=== PATIENT | male | born 1970 | race Caucasian/White ===

== ENCOUNTER 2020-08-04 12:56 | Emergency (ER) | payer OTHER ==
[~2020-08-04 12:56] MED LIST: ATARAX25 MG PO; CENTRUM SILVER1 EAC2 PO; COZAAR 25MG TAB25 MG PO; FERROUS SULFAT325 MG PO; FOLIC ACID1 M1 PO; K-DUR20 MEQ PO; LASIX20 MG PO; LASIX40 MG PO; MAGNESIUM OXID400 MG PO; MIDODRINE HCL10 MG PO; NEXIUM40 MG PO; SLEEP AID25 M2 PO; SPIRONOLACTONE25 M1 PO; TOPROL XL 25MG25 MG PO; XANAX0.25 MG PO; ZINC50 MG PO
[2020-08-04 14:26] LABS: INR 1.51 (0.9-1.2); PROTHROMBIN TIME 17.3 SECONDS (11.4-13.6); PTT 39.5 SECONDS (22.2-34.7)
[2020-08-04 14:37] LABS: ALBUMIN 1.8 g/dL (3.4-5.0); BILIRUBIN - TOTAL 0.7 mg/dL (0.2-1.0); BUN/CREAT RATIO (CALC) 24.1 RATIO; CREATININE 1.87 mg/dL (0.67-1.17); GLOBULIN (CALCULATION) 2.7 g/dL; TOTAL PROTEIN 4.5 g/dL (6.4-8.2)
[2020-08-04 14:42] LABS: POTASSIUM 5.6 mmol/L (3.5-5.1)
[2020-08-04 14:43] LABS: LACTIC ACID 1.7 mmol/L (0.4-1.9)
[2020-08-04 14:50] LABS: BASOPHIL 0.9 % (0-2); EOSINOPHIL 3.9 % (0-5); HCT 18.4 % (42.0-52.0); MCH 28.4 pg (25.0-31.0); MCHC 29.3 g/dL (32.0-36.0); MCV 96.8 fL (78.0-100.0); MONOCYTE 11.5 % (0-12); MPV 10.5 fL (6.0-9.5); NEUTROPHIL 76.1 % (41-80); NRBC 0; PLT 100 K/uL (150-400); RDW 16.9 % (11.5-14.0); WBC 6.9 K/uL (4.0-10.5)
[2020-08-04 14:52] LABS: HGB 5.4 g/dl (13.2-18.0)
[2020-08-05] MEDS ORDERED: LASIX40 MG PO (02:19)
[2020-08-05] MEDS ORDERED: NEXIUM40 MG PO (02:21)
[2020-08-05] MEDS ORDERED: ATARAX25 MG PO (02:27)
[2020-08-05] MEDS ORDERED: PROAMATINE5 MG PO (02:28)
== END 2020-08-04 15:01 | disposition left against medical advice (07) ==
LOC: FER 12:56
PROVIDERS: Emergency Medicine
DX: D64.9 Anemia, unspecified (principal); R18.8 Other ascites; I10 Essential (primary) hypertension; F17.200 Nicotine dependence, unspecified, uncomplicated; Z87.19 Personal history of other diseases of the digestive system; Z86.79 Personal history of other diseases of the circulatory system; Z91.030 Bee allergy status
CPT/HCPCS: 36415; 71045; 80053; 83605; 83880; 84484; 85025; 85610; 85730; 86850; 86900; 86901; 87040; 93005

== ENCOUNTER 2020-08-04 21:42 | Inpatient (IN) | payer OTHER ==
[2020-08-04 22:58] LABS: BASOPHIL 0.7 % (0-2); EOSINOPHIL 4.8 % (0-5); HCT 18.2 % (42.0-52.0); LYMPHOCYTE 7.4 % (15-48); MCH 28.6 pg (25.0-31.0); MCHC 29.7 g/dL (32.0-36.0); MCV 96.3 fL (78.0-100.0); MONOCYTE 12.2 % (0-12); MPV 10.3 fL (6.0-9.5); NEUTROPHIL 74.5 % (41-80); NRBC 0; RBC 1.89 M/uL (4.70-6.00); RDW 17.1 % (11.5-14.0); WBC 6.7 K/uL (4.0-10.5)
[2020-08-04 23:00] LABS: HGB 5.4 g/dl (13.2-18.0)
[2020-08-04 23:01] LABS: PLT 104 K/uL (150-400)
[2020-08-05] MEDS ORDERED: LASIX40 MG PO (02:19)
[2020-08-05] MEDS ORDERED: NEXIUM40 MG PO (02:21)
[2020-08-05] MEDS ORDERED: ATARAX25 MG PO (02:27)
[2020-08-05] MEDS ORDERED: PROAMATINE5 MG PO (02:28)
--- NOTE | 2020-08-05 03:05 | NUR ---
2315: PT RECEIVED AN ADMIT FROM ED. ORIENTED TO ROOM.
--- NOTE | 2020-08-05 03:18 | NUR ---
0207: TATYANA IN LAB STATED PLASMA WILL NOT BE READY UNTIL DAYSHIFT.
--- NOTE | 2020-08-05 03:59 | NUR ---
0200: KRISTI IBANEZ NOTIFIED OF CHANGE IN PT'S STATUS. PT EXTREMELY LETHARIC. AROUSES TO PAINFUYL STIMULI ONLY.
--- NOTE | 2020-08-05 04:24 | NUR ---
0415: PT TRANFERRED TO ICU BED 2 IN CRITICAL CONDITION.
[2020-08-05 05:46] LABS: BASOPHIL 0.5 % (0-2); EOSINOPHIL 2.1 % (0-5); HCT 20.2 % (42.0-52.0); LYMPHOCYTE 5.8 % (15-48); MCH 28.9 pg (25.0-31.0); MCHC 31.2 g/dL (32.0-36.0); MCV 92.7 fL (78.0-100.0); MONOCYTE 10.8 % (0-12); MPV 9.9 fL (6.0-9.5); NEUTROPHIL 80.4 % (41-80); NRBC 0; PLT 101 K/uL (150-400); RBC 2.18 M/uL (4.70-6.00); RDW 17.2 % (11.5-14.0); WBC 7.7 K/uL (4.0-10.5)
[2020-08-05 05:48] LABS: HGB 6.3 g/dl (13.2-18.0)
[2020-08-05 06:26] LABS: ALBUMIN 2.1 g/dL (3.4-5.0); BILIRUBIN - TOTAL 1.8 mg/dL (0.2-1.0); BUN/CREAT RATIO (CALC) 26.2 RATIO; CREATININE 1.72 mg/dL (0.67-1.17); GLOBULIN (CALCULATION) 2.6 g/dL; TOTAL PROTEIN 4.7 g/dL (6.4-8.2)
[2020-08-05 06:54] LABS: INR 1.52 (0.9-1.2); PROTHROMBIN TIME 17.4 SECONDS (11.4-13.6); PTT 39.9 SECONDS (22.2-34.7)
[2020-08-05 07:08] LABS: POTASSIUM 6.7 mmol/L (3.5-5.1)
[2020-08-05 07:34] LABS: BILIRUBIN NEGATIVE (NEGATIVE); BLOOD NEGATIVE Ery/uL (NEGATIVE); CLARITY CLEAR (CLEAR); COLOR YELLOW (YELLOW); GLUCOSE (U) NORMAL (NORMAL); LEUKOCYTES NEGATIVE Leu/uL (NEGATIVE); NITRITE NEGATIVE (NEGATIVE); PROTEIN NEGATIVE (NEGATIVE); SPECIFIC GRAVITY 1.015 (1.001-1.030); UROBILINOGEN 0.2 mg/dL (0.2-1.0); pH 6.5 (5.0-9.0)
--- NOTE | 2020-08-05 08:26 | NUR ---
PATIENT REMAINS UNRESPONSIVE, PLAN TO INTUBATE BY TO PROTECT AIRWAY. RT AND RN AT BEDSIDE TO ASSIST. ETOMIDATE AND VERSED PUSHED PER MD ORDERS. INTUBATED WITH 7.5 ETT 25 @ LIP AT 0839 BY WITHOUT COMPLICATIONS, EVEN BREATH SOUNDS, COLOR CHANGE PER CO2 DETECTOR. PLACED ON AC R 14 TV 450 PEEP 5 60% FIO2. CONFIRMED PLACEMENT WITH CXR. RESTRAINTS INITIATED. PATIENT BITTING TUBE, FIGHTING VENT. PROPOFOL PUSHED BY APPROX 2ML, GTT OF PROPOFOL STARTED PER MD ORDER.
[2020-08-05 08:40] LABS: WBC (FLUID) 34 WBC/uL
[2020-08-05 09:13] LABS: CLARITY (FLUID) CLEAR; COLOR (FLUID) STRAW; RBC (FLUID) 105 RBC/uL
--- NOTE | 2020-08-05 09:18 | NUR ---
PT LIVES WITH MOM REPORTS HE IS INDEPENDENT;PLEASE ADVISE OF DISCHARGE NEEDS
--- NOTE | 2020-08-05 09:42 | NUR ---
CENTRAL LINE PLACED BY AT APPROX 0900, XRAY CONFIRMED PLACEMENT AT 0942, OKAY TO USE PER .
[2020-08-05 12:43] LABS: HCT 19.5 % (42.0-52.0); MCH 28.8 pg (25.0-31.0); MCHC 31.3 g/dL (32.0-36.0); MPV 10.5 fL (6.0-9.5); RBC 2.12 M/uL (4.70-6.00); RDW 17.8 % (11.5-14.0); WBC 6.4 K/uL (4.0-10.5)
[2020-08-05 12:44] LABS: HGB 6.1 g/dl (13.2-18.0)
[2020-08-05 13:00] LABS: BUN/CREAT RATIO (CALC) 25.5 RATIO; CREATININE 1.65 mg/dL (0.67-1.17); MAGNESIUM 1.9 mg/dL (1.8-2.4); POTASSIUM 5.8 mmol/L (3.5-5.1)
[2020-08-05 17:59] LABS: URINE CREATININE 43.52 mg/dL (29.00-226.00)
[2020-08-06 00:34] LABS: HCT 26.9 % (42.0-52.0); HGB 8.5 g/dL (13.2-18.0)
[2020-08-06 05:53] LABS: BASOPHIL 1.1 % (0-2); EOSINOPHIL 3.9 % (0-5); MCH 28.9 pg (25.0-31.0); MCHC 31.4 g/dL (32.0-36.0); MCV 91.8 fL (78.0-100.0); MONOCYTE 13.9 % (0-12); MPV 10.1 fL (6.0-9.5); NEUTROPHIL 72.6 % (41-80); NRBC 0; PLT 69 K/uL (150-400); RBC 3.05 M/uL (4.70-6.00); RDW 17.8 % (11.5-14.0); WBC 6.3 K/uL (4.0-10.5)
[2020-08-06 06:23] LABS: ALBUMIN 2.1 g/dL (3.4-5.0); BILIRUBIN - TOTAL 1.5 mg/dL (0.2-1.0); BUN/CREAT RATIO (CALC) 22.8 RATIO; CREATININE 1.58 mg/dL (0.67-1.17); GLOBULIN (CALCULATION) 2.5 g/dL; POTASSIUM 5.1 mmol/L (3.5-5.1); TOTAL PROTEIN 4.6 g/dL (6.4-8.2)
[2020-08-06 06:41] LABS: HGB 8.8 g/dl (13.2-18.0)
[2020-08-06] MEDS ORDERED: XIFAXAN550 MG PO (10:04)
[2020-08-06] MEDS ORDERED: TRAZODONE 50MG50 MG PO (10:05)
[2020-08-06] MEDS ORDERED: LACTULOSE10 G/15 ML PR (10:06)
[2020-08-06] MEDS ORDERED: MAG-OXIDE 400M400 MG PO (10:07)
[2020-08-06] MEDS ORDERED: REQUIP0.25 MG PO (10:07)
--- NOTE | 2020-08-06 12:23 | NUR ---
EXTUBATION NOTE: DR. ALONZO ORDERED FOR PT TO BE EXTUBATED SINCE HAS TOLERATED CPAP TRIAL ON VENT VERY WELL X 3 HOURS, AMMONIA LEVEL DOWN TO 70, & SEDATION IS OFF, HE IS STILL SOMEWHAT LETHARGIC/DROWSY BUT FLUTTERS EYES OPEN TO VOICE, MOVES ALL EXTREMITIES, COUGHS ON COMMAND. RESP THERAPY & THIS RN AT BEDSIDE, SUCTIONED WELL BEFORE EXTUBATION & PROVENTIL INHALER GIVEN. EXTUBATED AT 1223, RESTRAINTS REMOVED AT 1224. BP 177/42, HR 123, RR 22, 100% ON NC3 L/MIN 02 IMMEDIATE POST EXTUBATION. FOLLOWING COMMANDS TO COUGH, STATES NAME, YES/NO QUESTIONS, STILL LETHARGIC. DR. ALONZO AWARE. WILL CONT. TO MONITOR CLOSELY.
--- NOTE | 2020-08-06 14:55 | NUR ---
DR. ALONZO NOTIFIED THAT PT REMAINS LETHARGIC, BUT RESTLESS SINCE EXTUBATION. FIDGETY/PULLS AT LINES/TUBES, NEEDS FREQUENT REORIENTATION. STATES YES/NO TO SIMPLE QUESTIONS ASKED, STATES NAME, FOLLOWS COMMAND TO COUGH, BUT OTHERWISE STILL LETHARGIC. ALSO NOTIFIED THAT HR STAYING 1-TEENS TO LOW 120'S. ALL OTHER VSS, 100% O2 ON ROOM AIR. WILL CONTINUE TO MONITOR CLOSELY.
--- NOTE | 2020-08-06 16:56 | NUR ---
DR. ALONZO NOTIFIED THAT HR STAYING HIGH 120'S, ALL OTHER VSS. ASKED MD IF HE WANTS CBC - HE DOES NOT AT THIS TIME. ALSO NOTIFED MD THAT [facility] CALLED TO ASK IF PT NEEDS TO SCHEDULED FOR PARACENTESIS TOMM. PER HOME ROUTINE Q TU/FRI. NORMALLY DRAINS 7-8 L TWICE/WEEK. DR. ALONZO STATES HE MAY DO PARACENTESIS THIS WEEKEND OR IF PT BECOME UNSTABLE, BUT DOES NOT NEED TO BE SCHEDULED FOR TOMORROW AT THIS TIME. INFORMATION RELAYED TO [facility] [place] [place]. WILL CONT. TO [facility].
[2020-08-07 03:56] LABS: BASOPHIL 0.9 % (0-2); EOSINOPHIL 2.8 % (0-5); HGB 7.8 g/dl (13.2-18.0); LYMPHOCYTE 6.8 % (15-48); MCH 28.8 pg (25.0-31.0); MCHC 31.2 g/dL (32.0-36.0); MCV 92.3 fL (78.0-100.0); MONOCYTE 13.9 % (0-12); MPV 9.9 fL (6.0-9.5); NEUTROPHIL 75.4 % (41-80); NRBC 0; RBC 2.71 M/uL (4.70-6.00); RDW 17.7 % (11.5-14.0); WBC 5.6 K/uL (4.0-10.5)
[2020-08-07 04:00] LABS: PLT 52 K/uL (150-400)
[2020-08-07 04:09] LABS: BUN/CREAT RATIO (CALC) 21.7 RATIO; CREATININE 1.15 mg/dL (0.67-1.17); POTASSIUM 3.6 mmol/L (3.5-5.1)
[2020-08-07 09:09] LABS: RETICULOCYTE COUNT 4.5 % (1.0-2.0)
[2020-08-07 09:25] LABS: IRON % SATURATION 19.4 %SAT (20-50)
[2020-08-07 09:52] LABS: FOLIC ACID (SERUM) 18.7 ng/mL (8.6-58.9)
--- NOTE | 2020-08-07 12:36 | NUR ---
PARACENTESIS CATHETER PLACED BY DR. KHAN. 6000 MLS OF CLEAR YELLOW FLUID DRAINED FROM ABDOMEN
[2020-08-08 04:27] LABS: EOSINOPHIL 3.8 % (0-5); HCT 24.3 % (42.0-52.0); HGB 7.6 g/dl (13.2-18.0); LYMPHOCYTE 8.4 % (15-48); MCH 29.6 pg (25.0-31.0); MCHC 31.3 g/dL (32.0-36.0); MCV 94.6 fL (78.0-100.0); MPV 10.2 fL (6.0-9.5); NEUTROPHIL 73.4 % (41-80); NRBC 0; RBC 2.57 M/uL (4.70-6.00); RDW 17.9 % (11.5-14.0)
[2020-08-08 04:28] LABS: PLT 47 K/uL (150-400)
[2020-08-08 04:45] LABS: ALBUMIN 2.5 g/dL (3.4-5.0); BILIRUBIN - TOTAL 1.7 mg/dL (0.2-1.0); BUN/CREAT RATIO (CALC) 16.2 RATIO; CREATININE 1.05 mg/dL (0.67-1.17); GLOBULIN (CALCULATION) 2.2 g/dL; POTASSIUM 3.9 mmol/L (3.5-5.1); TOTAL PROTEIN 4.7 g/dL (6.4-8.2)
--- NOTE | 2020-08-08 11:36 | NUR ---
PATIENT FALL: PATIENT STOOD UP FROM THE CHAIR, THE BOTTOM OF RECLINER HIT THE BACK OF LEGS AND PT FELL RO HIS KNEES THEN FELL OVER AND BUMPED HIS HEAD NOTIFIED DR ALONZO AND DEPUTY CORONER INVESTIGATOR
--- NOTE | 2020-08-08 15:39 | NUR ---
PT RECIEVED A HEAD CT AND A XRAY OF THE LEFT KNEE
--- NOTE | 2020-08-08 23:28 | NUR ---
REMOVED CENTRAL INTERNAL JUGULAR LINE PER ORDER. PATIENT TOLERATED WELL. LINE WAS LEAKING BLOOD, HAD SOME LEAKAGE UPON REMOVAL. COVERED WITH GAUZE AND TAPE. WILL MONITOR FOR LEAKAGE.
[2020-08-09 05:57] LABS: BASOPHIL 0.7 % (0-2); HCT 23.9 % (42.0-52.0); HGB 7.4 g/dl (13.2-18.0); LYMPHOCYTE 10.9 % (15-48); MCH 29.1 pg (25.0-31.0); MCV 94.1 fL (78.0-100.0); MPV 11.1 fL (6.0-9.5); NEUTROPHIL 69.2 % (41-80); NRBC 0; RBC 2.54 M/uL (4.70-6.00); RDW 17.8 % (11.5-14.0); WBC 4.1 K/uL (4.0-10.5)
[2020-08-09 06:21] LABS: BUN/CREAT RATIO (CALC) 17.2 RATIO; CREATININE 0.87 mg/dL (0.67-1.17); POTASSIUM 3.6 mmol/L (3.5-5.1)
[2020-08-09 06:22] LABS: PLT 48 K/uL (150-400)
== END 2020-08-09 12:31 | disposition home or self-care (01) | DRG 442 ==
LOC: FER 21:42 → FMS 22:37 → FICU 08-05 02:23 → FTCU 08-08 09:07
PROVIDERS: Emergency Medicine; Nurse Practitioner; ADMIT Internal Medicine
PROC: 0W9G3ZZ Drainage of Peritoneal Cavity, Percutaneous Approach (ICD-10-PCS; 2020-08-05)
PROC: 0BH17EZ Insertion of Endotracheal Airway into Trachea, Via Natural or Artificial Opening (ICD-10-PCS; 2020-08-05)
PROC: 02HV33Z Insertion of Infusion Device into Superior Vena Cava, Percutaneous Approach (ICD-10-PCS; 2020-08-05)
PROC: 5A1945Z Respiratory Ventilation, 24-96 Consecutive Hours (ICD-10-PCS; 2020-08-05)
PROC: 30233N1 Transfusion of Nonautologous Red Blood Cells into Peripheral Vein, Percutaneous Approach (ICD-10-PCS; 2020-08-05)
PROC: 3E02340 Introduction of Influenza Vaccine into Muscle, Percutaneous Approach (ICD-10-PCS; principal; 2020-08-08)
DX: K72.00 Acute and subacute hepatic failure without coma (principal); D58.9 Hereditary hemolytic anemia, unspecified; E87.1 Hypo-osmolality and hyponatremia; J98.11 Atelectasis; D62 Acute posthemorrhagic anemia; N17.9 Acute kidney failure, unspecified; R18.8 Other ascites; D68.9 Coagulation defect, unspecified; K74.60 Unspecified cirrhosis of liver; M10.9 Gout, unspecified; D69.6 Thrombocytopenia, unspecified; Z20.822 Contact with and (suspected) exposure to COVID-19; F41.1 Generalized anxiety disorder; M19.011 Primary osteoarthritis, right shoulder; F17.210 Nicotine dependence, cigarettes, uncomplicated; D64.9 Anemia, unspecified; Z23 Encounter for immunization
CPT/HCPCS: 36415; 36430; 36600; 70450; 71045; 73560; 80048; 80053; 81003; 82140; 82570; 82607; 82728; 82746; 82803; 83010; 83540; 83550; 83605; 83615; 83735; 83880; 84300; 84484; 85014; 85018; 85025; 85610; 85730; 86850; 86900; 86901; 86922; 87040; 87070; 87088; 87205; 89051; 90686; 93005; 94002; 94640; 97165; 97530; C9113; J0610; J0696; J2250; J2354; J2704; J2916; J7030; P9016; P9017; P9046; U0002

== ENCOUNTER 2020-11-21 13:50 | Emergency (ER) | payer OTHER ==
[~2020-11-21 13:50] MED LIST changes: +LACTULOSE10 G/15 ML PR; +MAG-OXIDE 400M400 MG PO; +PROAMATINE5 MG PO; +REQUIP0.25 MG PO; +TRAZODONE 50MG50 MG PO; +XIFAXAN550 MG PO
[2020-11-21 16:34] LABS: BILIRUBIN NEGATIVE (NEGATIVE); BLOOD NEGATIVE Ery/uL (NEGATIVE); CLARITY CLEAR (CLEAR); COLOR YELLOW (YELLOW); GLUCOSE (U) NORMAL (NORMAL); LEUKOCYTES NEGATIVE Leu/uL (NEGATIVE); NITRITE NEGATIVE (NEGATIVE); PROTEIN NEGATIVE (NEGATIVE); SPECIFIC GRAVITY 1.025 (1.001-1.030); UROBILINOGEN 0.2 mg/dL (0.2-1.0)
[2020-11-21 16:44] LABS: ALBUMIN 2.7 g/dL (3.4-5.0); BUN/CREAT RATIO (CALC) 17.5 RATIO; CREATININE 1.71 mg/dL (0.67-1.17); GLOBULIN (CALCULATION) 2.2 g/dL; POTASSIUM 4.8 mmol/L (3.5-5.1); TOTAL PROTEIN 4.9 g/dL (6.4-8.2)
[2020-11-21 16:45] LABS: BASOPHIL 1.1 % (0-2); EOSINOPHIL 3.5 % (0-5); HCT 25.4 % (42.0-52.0); HGB 8.4 g/dl (13.2-18.0); LYMPHOCYTE 7.3 % (15-48); MCH 31.9 pg (25.0-31.0); MCHC 33.1 g/dL (32.0-36.0); MCV 96.6 fL (78.0-100.0); MONOCYTE 15.2 % (0-12); MPV 12.5 fL (6.0-9.5); NEUTROPHIL 72.4 % (41-80); NRBC 0; RBC 2.63 M/uL (4.70-6.00); RDW 20.9 % (11.5-14.0); WBC 5.5 K/uL (4.0-10.5)
[2020-11-21 16:47] LABS: PLT 91 K/uL (150-400)
== END 2020-11-21 17:26 | disposition home or self-care (01) ==
LOC: FER 13:50
PROVIDERS: Nurse Practitioner Family
DX: S60.221A Contusion of right hand, initial encounter (principal); E80.6 Other disorders of bilirubin metabolism; N18.9 Chronic kidney disease, unspecified; Z87.19 Personal history of other diseases of the digestive system; W19.XXXA Unspecified fall, initial encounter
CPT/HCPCS: 36415; 73130; 80053; 81003; 85025

== ENCOUNTER 2020-12-02 10:55 | Inpatient (IN) | payer OTHER ==
[~2020-12-02] VITALS: Ht 177.8 cm; Wt 70.9 kg
[2020-12-02 11:18] LABS: BASOPHIL 0.3 % (0-2); EOSINOPHIL 1.3 % (0-5); HCT 25.5 % (42.0-52.0); HGB 8.7 g/dl (13.2-18.0); LYMPHOCYTE 4.9 % (15-48); MCH 31.4 pg (25.0-31.0); MCHC 34.1 g/dL (32.0-36.0); MCV 92.1 fL (78.0-100.0); MONOCYTE 12.1 % (0-12); MPV 11.5 fL (6.0-9.5); NEUTROPHIL 80.9 % (41-80); NRBC 0; PLT 128 K/uL (150-400); RBC 2.77 M/uL (4.70-6.00); RDW 18.5 % (11.5-14.0)
[2020-12-02 11:22] LABS: WBC 14.6 K/uL (4.0-10.5)
[2020-12-02 11:27] LABS: ALBUMIN 2.5 g/dL (3.4-5.0); BILIRUBIN - TOTAL 2.2 mg/dL (0.2-1.0); BUN/CREAT RATIO (CALC) 29.8 RATIO; CREATININE 2.18 mg/dL (0.67-1.17); GLOBULIN (CALCULATION) 2.3 g/dL; POTASSIUM 5.4 mmol/L (3.5-5.1); TOTAL PROTEIN 4.8 g/dL (6.4-8.2)
[2020-12-02 11:30] LABS: LACTIC ACID 2.6 mmol/L (0.4-1.9)
[2020-12-02 11:41] LABS: INR 1.61 (0.9-1.2); PROTHROMBIN TIME 18.2 SECONDS (11.4-13.6)
[2020-12-02 12:21] LABS: BILIRUBIN NEGATIVE (NEGATIVE); BLOOD NEGATIVE Ery/uL (NEGATIVE); CLARITY CLEAR (CLEAR); COLOR YELLOW (YELLOW); GLUCOSE (U) NORMAL (NORMAL); LEUKOCYTES NEGATIVE Leu/uL (NEGATIVE); NITRITE NEGATIVE (NEGATIVE); PROTEIN NEGATIVE (NEGATIVE); UROBILINOGEN 0.2 mg/dL (0.2-1.0)
[2020-12-03 05:46] LABS: BASOPHIL 0.2 % (0-2); HCT 20.9 % (42.0-52.0); LYMPHOCYTE 3.6 % (15-48); MCH 31.8 pg (25.0-31.0); MCHC 33.5 g/dL (32.0-36.0); MONOCYTE 8.4 % (0-12); MPV 12.1 fL (6.0-9.5); NEUTROPHIL 86.3 % (41-80); NRBC 0; PLT 64 K/uL (150-400); RDW 18.4 % (11.5-14.0); WBC 12.6 K/uL (4.0-10.5)
[2020-12-03 05:50] LABS: INR 1.87 (0.9-1.2); PROTHROMBIN TIME 20.5 SECONDS (11.4-13.6)
[2020-12-03 06:08] LABS: ALBUMIN 3.2 g/dL (3.4-5.0); BILIRUBIN - TOTAL 2.1 mg/dL (0.2-1.0); BUN/CREAT RATIO (CALC) 29.7 RATIO; CREATININE 1.95 mg/dL (0.67-1.17); GLOBULIN (CALCULATION) 1.9 g/dL; MAGNESIUM 2.3 mg/dL (1.8-2.4); TOTAL PROTEIN 5.1 g/dL (6.4-8.2)
[2020-12-03 06:10] LABS: POTASSIUM 3.7 mmol/L (3.5-5.1)
--- NOTE | 2020-12-03 14:56 | NUR ---
12/03/20 Mr. Mcqueen lives at home with his mother. He will be transferred to [facility] when a bed is available.
[2020-12-03 20:57] LABS: BASOPHIL 0.4 % (0-2); EOSINOPHIL 2.3 % (0-5); HCT 21.3 % (42.0-52.0); HGB 6.8 g/dl (13.2-18.0); LYMPHOCYTE 6.7 % (15-48); MCH 31.6 pg (25.0-31.0); MCHC 31.9 g/dL (32.0-36.0); MCV 99.1 fL (78.0-100.0); MONOCYTE 12.5 % (0-12); MPV 13.5 fL (6.0-9.5); NEUTROPHIL 77.4 % (41-80); NRBC 0; PLT 55 K/uL (150-400); RBC 2.15 M/uL (4.70-6.00); RDW 18.3 % (11.5-14.0)
== END 2020-12-03 23:32 | disposition other institution (70) | DRG 871 ==
LOC: FER 10:55 → FICU 12:56
PROVIDERS: Emergency Medicine; Nurse Practitioner; ADMIT Allergy & Immunology Allergy
PROC: 0W9G3ZZ Drainage of Peritoneal Cavity, Percutaneous Approach (ICD-10-PCS; principal; 2020-12-01)
PROC: 30233L1 Transfusion of Nonautologous Fresh Plasma into Peripheral Vein, Percutaneous Approach (ICD-10-PCS; 2020-12-02)
DX: A41.1 Sepsis due to other specified staphylococcus (principal); G93.41 Metabolic encephalopathy; K65.2 Spontaneous bacterial peritonitis; D68.9 Coagulation defect, unspecified; E87.1 Hypo-osmolality and hyponatremia; I85.10 Secondary esophageal varices without bleeding; D68.8 Other specified coagulation defects; N17.9 Acute kidney failure, unspecified; K70.31 Alcoholic cirrhosis of liver with ascites; K72.90 Hepatic failure, unspecified without coma; D69.6 Thrombocytopenia, unspecified; I95.9 Hypotension, unspecified; I51.7 Cardiomegaly; Z20.822 Contact with and (suspected) exposure to COVID-19; F41.1 Generalized anxiety disorder; M10.9 Gout, unspecified; D64.9 Anemia, unspecified; F17.200 Nicotine dependence, unspecified, uncomplicated; Z91.038 Other insect allergy status; Z79.899 Other long term (current) drug therapy; Z90.79 Acquired absence of other genital organ(s)
CPT/HCPCS: 36415; 36430; 36600; 70450; 71045; 74018; 80053; 81003; 82140; 82550; 82803; 83605; 83735; 85025; 85610; 86900; 86901; 87040; 87077; 87186; 93005; 94640; C9113; G0480; J0696; J2060; J2543; J7030; J7120; P9017; P9046; U0002

== ENCOUNTER 2020-12-26 15:08 | Inpatient (IN) | payer OTHER ==
[~2020-12-26] VITALS: Ht 177.8 cm; Wt 73.1 kg
[2020-12-26 16:55] LABS: BASOPHIL 1.1 % (0-2); HCT 25.4 % (42.0-52.0); HGB 8.6 g/dl (13.2-18.0); LYMPHOCYTE 5.4 % (15-48); MCH 31.7 pg (25.0-31.0); MCHC 33.9 g/dL (32.0-36.0); MCV 93.7 fL (78.0-100.0); MONOCYTE 9.8 % (0-12); MPV 10.3 fL (6.0-9.5); NEUTROPHIL 77.3 % (41-80); NRBC 0; PLT 122 K/uL (150-400); RBC 2.71 M/uL (4.70-6.00); RDW 17.3 % (11.5-14.0); WBC 9.3 K/uL (4.0-10.5)
[2020-12-26 17:08] LABS: INR 1.45 (0.9-1.2); PROTHROMBIN TIME 16.9 SECONDS (11.8-13.4)
[2020-12-26 17:17] LABS: ALBUMIN 2.4 g/dL (3.4-5.0); BILIRUBIN - TOTAL 0.8 mg/dL (0.2-1.0); BUN/CREAT RATIO (CALC) 29.7 RATIO; CREATININE 2.22 mg/dL (0.67-1.17); GLOBULIN (CALCULATION) 2.4 g/dL; TOTAL PROTEIN 4.8 g/dL (6.4-8.2)
[2020-12-26 17:32] LABS: POTASSIUM 7.2 mmol/L (3.5-5.1)
[2020-12-26 18:54] LABS: CREATININE 2.26 mg/dL (0.67-1.17)
[2020-12-26 18:58] LABS: POTASSIUM 7.5 mmol/L (3.5-5.1)
[2020-12-26] MEDS ORDERED: ACIDOPHILUS LA1 EAC1 PO (22:19)
[2020-12-26] MEDS ORDERED: CALCIUM 250+D1 EACH PO (22:19)
[2020-12-26] MEDS ORDERED: VITAMIN B-121000 MC1 PO (22:20)
[2020-12-26] MEDS ORDERED: MIDODRINE HCL10 MG PO (22:20)
[2020-12-26] MEDS ORDERED: CYTOTEC100 MCG PO (22:22)
[2020-12-26] MEDS ORDERED: ZINC50 M1 PO (22:23)
[2020-12-27 00:53] LABS: BUN/CREAT RATIO (CALC) 30.1 RATIO; CREATININE 2.29 mg/dL (0.67-1.17); POTASSIUM 6.4 mmol/L (3.5-5.1)
[2020-12-27 06:33] LABS: EOSINOPHIL 9.3 % (0-5); HGB 7.3 g/dl (13.2-18.0); MCH 30.9 pg (25.0-31.0); MCHC 33.2 g/dL (32.0-36.0); MCV 93.2 fL (78.0-100.0); MONOCYTE 12.6 % (0-12); MPV 10.1 fL (6.0-9.5); NEUTROPHIL 67.8 % (41-80); NRBC 0; PLT 66 K/uL (150-400); RBC 2.36 M/uL (4.70-6.00); RDW 17.2 % (11.5-14.0); WBC 5.8 K/uL (4.0-10.5)
[2020-12-27 06:48] LABS: ALBUMIN 2.4 g/dL (3.4-5.0); BILIRUBIN - TOTAL 1.3 mg/dL (0.2-1.0); BUN/CREAT RATIO (CALC) 28.8 RATIO; CREATININE 2.26 mg/dL (0.67-1.17); GLOBULIN (CALCULATION) 2.2 g/dL; POTASSIUM 6.1 mmol/L (3.5-5.1); TOTAL PROTEIN 4.6 g/dL (6.4-8.2)
[2020-12-27 17:25] LABS: URINE CREATININE 121.97 mg/dL (29.00-226.00)
[2020-12-28 05:51] LABS: BASOPHIL 0.8 % (0-2); HCT 23.7 % (42.0-52.0); HGB 7.8 g/dl (13.2-18.0); LYMPHOCYTE 3.4 % (15-48); MCH 31.5 pg (25.0-31.0); MCHC 32.9 g/dL (32.0-36.0); MCV 95.6 fL (78.0-100.0); MPV 11.4 fL (6.0-9.5); NEUTROPHIL 78.4 % (41-80); NRBC 0; PLT 67 K/uL (150-400); RBC 2.48 M/uL (4.70-6.00); RDW 16.7 % (11.5-14.0); WBC 7.3 K/uL (4.0-10.5)
[2020-12-28 06:12] LABS: ALBUMIN 2.6 g/dL (3.4-5.0); BILIRUBIN - TOTAL 0.7 mg/dL (0.2-1.0); BUN/CREAT RATIO (CALC) 29.4 RATIO; CREATININE 1.97 mg/dL (0.67-1.17); GLOBULIN (CALCULATION) 2.4 g/dL; POTASSIUM 4.8 mmol/L (3.5-5.1)
--- NOTE | 2020-12-28 16:24 | NUR ---
DISCHARGE ORDERS RECEIVED. IV DC'D. PT VERBALIZED UNDERSTANDING OF ALL DISCHARGE ORDERS AND APPOINTMENTS. PT TO PT PICKUP VIA WHEELCHAIR.
== END 2020-12-28 16:20 | disposition home or self-care (01) | DRG 432 ==
LOC: FER 15:08 → FTCU 19:12
PROVIDERS: Emergency Medicine; Internal Medicine; Nurse Practitioner; ADMIT Internal Medicine
PROC: 0W9G3ZX Drainage of Peritoneal Cavity, Percutaneous Approach, Diagnostic (ICD-10-PCS; principal; 2020-12-25)
DX: K70.40 Alcoholic hepatic failure without coma (principal); K76.7 Hepatorenal syndrome; N17.0 Acute kidney failure with tubular necrosis; E87.1 Hypo-osmolality and hyponatremia; N18.4 Chronic kidney disease, stage 4 (severe); I85.10 Secondary esophageal varices without bleeding; D63.8 Anemia in other chronic diseases classified elsewhere; I12.9 Hypertensive chronic kidney disease with stage 1 through stage 4 chronic kidney disease, or unspecified chronic kidney disease; K70.31 Alcoholic cirrhosis of liver with ascites; D53.9 Nutritional anemia, unspecified; D69.6 Thrombocytopenia, unspecified; E87.5 Hyperkalemia; F17.210 Nicotine dependence, cigarettes, uncomplicated; F41.1 Generalized anxiety disorder; M10.9 Gout, unspecified; M19.90 Unspecified osteoarthritis, unspecified site; Z83.3 Family history of diabetes mellitus; Z82.3 Family history of stroke; Z91.19 Patient's noncompliance with other medical treatment and regimen; Z79.899 Other long term (current) drug therapy; Z82.49 Family history of ischemic heart disease and other diseases of the circulatory system; Z91.030 Bee allergy status; Z91.038 Other insect allergy status
CPT/HCPCS: 36415; 80048; 80053; 82140; 82570; 84300; 85025; 85610; 85730; 87088; 94762; J0610; J0696; J1940; J2405; J7042; P9046

== ENCOUNTER 2021-01-09 23:37 | Day surgery (SDCO) | payer OTHER ==
[~2021-01-09] VITALS: Ht 177.8 cm; Wt 77.8 kg
[~2021-01-09 23:37] MED LIST changes: +ACIDOPHILUS LA1 EAC1 PO; +CALCIUM 250+D1 EACH PO; +CYTOTEC100 MCG PO; +VITAMIN B-121000 MC1 PO; +ZINC50 M1 PO
[2021-01-10 00:20] LABS: BASOPHIL 0.9 % (0-2); EOSINOPHIL 6.9 % (0-5); HCT 25.4 % (42.0-52.0); HGB 8.3 g/dl (13.2-18.0); LYMPHOCYTE 5.9 % (15-48); MCH 31.2 pg (25.0-31.0); MCHC 32.7 g/dL (32.0-36.0); MCV 95.5 fL (78.0-100.0); MPV 10.7 fL (6.0-9.5); NRBC 0; RBC 2.66 M/uL (4.70-6.00); RDW 15.2 % (11.5-14.0); WBC 6.5 K/uL (4.0-10.5)
[2021-01-10 00:31] LABS: ALBUMIN 2.4 g/dL (3.4-5.0); BILIRUBIN - TOTAL 0.6 mg/dL (0.2-1.0); BUN/CREAT RATIO (CALC) 24.5 RATIO; CREATININE 2.12 mg/dL (0.67-1.17); GLOBULIN (CALCULATION) 2.6 g/dL
[2021-01-10 00:32] LABS: PLT 59 K/uL (150-400)
[2021-01-10 00:32] LABS: BILIRUBIN NEGATIVE (NEGATIVE); BLOOD TRACE-INTACT Ery/uL (NEGATIVE); CLARITY CLEAR (CLEAR); COLOR YELLOW (YELLOW); GLUCOSE (U) NORMAL (NORMAL); LEUKOCYTES NEGATIVE Leu/uL (NEGATIVE); NITRITE NEGATIVE (NEGATIVE); PROTEIN NEGATIVE (NEGATIVE); SPECIFIC GRAVITY 1.015 (1.001-1.030); UROBILINOGEN 0.2 mg/dL (0.2-1.0)
[2021-01-10 00:38] LABS: LACTIC ACID 1.6 mmol/L (0.4-1.9)
[2021-01-10 00:39] LABS: POTASSIUM 7.3 mmol/L (3.5-5.1)
[2021-01-10 00:53] LABS: SQUAMOUS EPITHELIAL CELLS RARE
[2021-01-10 05:21] LABS: INR 1.35 (0.9-1.2); PTT 35.3 SECONDS (24.4-34.7)
[2021-01-10 05:52] LABS: BUN/CREAT RATIO (CALC) 27.1 RATIO; CREATININE 1.92 mg/dL (0.67-1.17)
[2021-01-10 05:55] LABS: POTASSIUM 5.3 mmol/L (3.5-5.1)
[2021-01-10 07:58] LABS: AMPHETAMINES NEGATIVE (NEGATIVE); BARBITURATES NEGATIVE (NEGATIVE); ECSTASY (MDMA) NEGATIVE (NEGATIVE); MARIJUANA (THC) NEGATIVE (NEGATIVE); METHADONE NEGATIVE (NEGATIVE); OPIATES NEGATIVE (NEGATIVE); OXYCODONE NEGATIVE (NEGATIVE)
--- NOTE | 2021-01-10 08:45 | NUR ---
UPON ADMISSION NOTED CXR WITH QUESTIONABLE PLACEMENT OF NGT, LOKI DAVIDSON INFORMED AND NEW XRAYS DONE WITH RECOMMENDATION TO REMOVE AND REPLACE
--- NOTE | 2021-01-10 11:20 | NUR ---
NGT REPLACED WITH MUCH DIFFICULTY, PATIENT HOLLERING STOP WITH SLURRED SPEECH. CONFIRMED WITH SCAN AND PRACTITIONER. CALL TO MOTHER AND UPDATED AND INFO OBTAINED FOR ASSESSMENT DATABASE
[2021-01-10] MEDS ORDERED: LACTULOSE10 G/15 ML PO (11:27)
[2021-01-10] MEDS ORDERED: MAG-OXIDE 400M400 MG PO (11:28)
[2021-01-10] MEDS ORDERED: PROAMATINE5 MG PO (11:29)
[2021-01-10] MEDS ORDERED: XIFAXAN550 MG PO (11:34)
[2021-01-10] MEDS ORDERED: FOLIC ACID1 MG PO (11:35)
[2021-01-10] MEDS ORDERED: VITAMIN B-1100 MG PO (11:36)
[2021-01-10] MEDS ORDERED: FEOSOL325 MG PO (11:36)
[2021-01-10] MEDS ORDERED: PRILOSEC20 MG PO (11:37)
[2021-01-10 12:17] LABS: MAGNESIUM 1.7 mg/dL (1.8-2.4); POTASSIUM 5.7 mmol/L (3.5-5.1)
[2021-01-10 20:39] LABS: BUN/CREAT RATIO (CALC) 27.5 RATIO; CREATININE 1.82 mg/dL (0.67-1.17); POTASSIUM 5.1 mmol/L (3.5-5.1)
--- NOTE | 2021-01-11 02:32 | NUR ---
PATIENT TOOK ALL ORAL MEDS WITHOUT PROBLEM, TOOK NG TUBE OUT PER PUMP OPERATOR ORDER. PATIENT HAD BOWEL MOVEMENT, ATE 2 BAG LUNCHES...TOLERATED WELL... AND THEN HAD ANOTHER BOWEL MOVEMENT, THEN WENT TO SLEEP.
[2021-01-11 05:54] LABS: HCT 22.2 % (42.0-52.0); HGB 7.2 g/dl (13.2-18.0); MCH 31.2 pg (25.0-31.0); MCHC 32.4 g/dL (32.0-36.0); MCV 96.1 fL (78.0-100.0); MPV 10.6 fL (6.0-9.5); RBC 2.31 M/uL (4.70-6.00); RDW 15.4 % (11.5-14.0); WBC 8.3 K/uL (4.0-10.5)
[2021-01-11 06:26] LABS: ALBUMIN 2.1 g/dL (3.4-5.0); BILIRUBIN - TOTAL 0.8 mg/dL (0.2-1.0); BUN/CREAT RATIO (CALC) 30.2 RATIO; CREATININE 1.69 mg/dL (0.67-1.17); GLOBULIN (CALCULATION) 2.5 g/dL; MAGNESIUM 1.8 mg/dL (1.8-2.4); POTASSIUM 4.9 mmol/L (3.5-5.1); TOTAL PROTEIN 4.6 g/dL (6.4-8.2)
--- NOTE | 2021-01-11 12:39 | NUR ---
DISCHARGE ORDERS RECEIVED. IV'S DC'D. PT VERBALIZED UNDERSTANDING OF ALL DISCHARGE ORDERS. PT ALREADY HAS AN APPOINTMENT WITH DR RONQUILLO AT [facility] ON MONDAY. PT HAS SCHEDULED PARACENTESIS. PT TAKEN TO PT PICKUP VIA WHEELCHAIR.
== END 2021-01-11 12:29 | disposition home or self-care (01) ==
LOC: FER 23:37 → FTCU 01-10 06:10
PROVIDERS: Emergency Medicine Emergency Medical Services; Nurse Practitioner; ADMIT Internal Medicine
DX: K72.01 Acute and subacute hepatic failure with coma (principal); E87.5 Hyperkalemia; D50.8 Other iron deficiency anemias; K70.31 Alcoholic cirrhosis of liver with ascites; K76.6 Portal hypertension; I13.10 Hypertensive heart and chronic kidney disease without heart failure, with stage 1 through stage 4 chronic kidney disease, or unspecified chronic kidney disease; N18.4 Chronic kidney disease, stage 4 (severe); N17.9 Acute kidney failure, unspecified; D69.6 Thrombocytopenia, unspecified; D68.4 Acquired coagulation factor deficiency; I95.89 Other hypotension; E87.1 Hypo-osmolality and hyponatremia; M10.9 Gout, unspecified; M19.90 Unspecified osteoarthritis, unspecified site; F17.200 Nicotine dependence, unspecified, uncomplicated; K80.20 Calculus of gallbladder without cholecystitis without obstruction; D73.2 Chronic congestive splenomegaly; R91.1 Solitary pulmonary nodule; Z91.14 Patient's other noncompliance with medication regimen; Z79.899 Other long term (current) drug therapy; Z91.038 Other insect allergy status; Z20.822 Contact with and (suspected) exposure to COVID-19
CPT/HCPCS: 36415; 36600; 70450; 71045; 74018; 80048; 80053; 80305; 81001; 82140; 82150; 82803; 83605; 83735; 84132; 84145; 84484; 85025; 85610; 85730; 86850; 86900; 86901; 86922; 87040; 87088; 93005; 94762; 96374; 96375; G0378; J0610; J1335; J1940; J3475; J7030; U0002

== ENCOUNTER 2021-01-16 09:16 | Emergency (ER) | payer OTHER ==
[~2021-01-16 09:16] MED LIST changes: +FEOSOL325 MG PO; +FOLIC ACID1 MG PO; +LACTULOSE10 G/15 ML PO; +PRILOSEC20 MG PO; +VITAMIN B-1100 MG PO
[2021-01-16 09:46] LABS: BASOPHIL 0.6 % (0-2); EOSINOPHIL 2.4 % (0-5); LYMPHOCYTE 5.2 % (15-48); MCH 31.3 pg (25.0-31.0); MCHC 33.3 g/dL (32.0-36.0); MCV 93.8 fL (78.0-100.0); MONOCYTE 8.1 % (0-12); NEUTROPHIL 83.1 % (41-80); NRBC 0; RBC 2.56 M/uL (4.70-6.00); RDW 15.9 % (11.5-14.0); WBC 6.9 K/uL (4.0-10.5)
[2021-01-16 09:47] LABS: PLT 79 K/uL (150-400)
[2021-01-16 09:56] LABS: INR 1.44 (0.9-1.2); PROTHROMBIN TIME 16.8 SECONDS (11.8-13.4); PTT 37.4 SECONDS (24.4-34.7)
[2021-01-16 10:06] LABS: LACTIC ACID 1.5 mmol/L (0.4-1.9)
[2021-01-16 10:35] LABS: ACETAMINOPHEN (TYLENOL) <2.0 ug/mL (10.0-30.0); ALBUMIN 2.2 g/dL (3.4-5.0); ALKALINE PHOSHATASE 149 U/L (46-116); AST 63 U/L (15-37); BILIRUBIN - TOTAL 0.9 mg/dL (0.2-1.0); CHLORIDE 97 mmol/L (98-107); CO2 (BICARBONATE) 15 mmol/L (21-32); GLOBULIN (CALCULATION) 2.7 g/dL; GLUCOSE 112 mg/dL (74-106); POTASSIUM 5.4 mmol/L (3.5-5.1); TOTAL PROTEIN 4.9 g/dL (6.4-8.2)
[2021-01-16 10:47] LABS: MAGNESIUM 1.8 mg/dL (1.8-2.4)
[2021-01-16 11:18] LABS: BILIRUBIN NEGATIVE (NEGATIVE); BLOOD NEGATIVE Ery/uL (NEGATIVE); CLARITY CLEAR (CLEAR); COLOR YELLOW (YELLOW); GLUCOSE (U) NORMAL (NORMAL); LEUKOCYTES NEGATIVE Leu/uL (NEGATIVE); NITRITE NEGATIVE (NEGATIVE); PROTEIN NEGATIVE (NEGATIVE); UROBILINOGEN 0.2 mg/dL (0.2-1.0)
[2021-01-16 11:22] LABS: AMPHETAMINES NEGATIVE (NEGATIVE); BARBITURATES NEGATIVE (NEGATIVE); ECSTASY (MDMA) NEGATIVE (NEGATIVE); MARIJUANA (THC) NEGATIVE (NEGATIVE); METHADONE NEGATIVE (NEGATIVE); OPIATES NEGATIVE (NEGATIVE); OXYCODONE NEGATIVE (NEGATIVE)
[2021-01-16 13:19] LABS: BUN 57 mg/dL (7-18)
[2021-01-16 13:35] LABS: CREATININE 2.32 mg/dL (0.67-1.17)
[2021-01-16 13:36] LABS: ALT 70 U/L (16-63)
== END 2021-01-16 18:40 | disposition other institution (70) ==
LOC: FER 09:16
PROVIDERS: Emergency Medicine
DX: K72.90 Hepatic failure, unspecified without coma (principal); E87.1 Hypo-osmolality and hyponatremia; E87.5 Hyperkalemia; R91.1 Solitary pulmonary nodule; D73.2 Chronic congestive splenomegaly; Z20.822 Contact with and (suspected) exposure to COVID-19
CPT/HCPCS: 36415; 36600; 70450; 71250; 74018; 80053; 80305; 81003; 82140; 82803; 83605; 83735; 84484; 85025; 85610; 85730; 87040; 87088; 93005; G0480; J7030; U0002

== ENCOUNTER 2021-01-29 15:39 | Emergency (ER) | payer OTHER | END 2021-01-29 20:37 | disposition home or self-care (01) | LOC: FER 15:39 | DX: K72.90 Hepatic failure, unspecified without coma (principal); N18.9 Chronic kidney disease, unspecified; F17.210 Nicotine dependence, cigarettes, uncomplicated | CPT/HCPCS: 99283 ==

== ENCOUNTER 2021-02-05 11:51 | Emergency (ER) | payer OTHER ==
[2021-02-05 14:26] LABS: ALBUMIN 2.4 g/dL (3.4-5.0); BILIRUBIN - TOTAL 0.8 mg/dL (0.2-1.0); BUN/CREAT RATIO (CALC) 29.5 RATIO; CREATININE 1.83 mg/dL (0.67-1.17); GLOBULIN (CALCULATION) 2.3 g/dL; POTASSIUM 4.5 mmol/L (3.5-5.1); TOTAL PROTEIN 4.7 g/dL (6.4-8.2)
[2021-02-05 22:42] LABS: HCT 24.2 % (42.0-52.0); HGB 8.1 g/dL (13.2-18.0)
== END 2021-02-05 23:09 | disposition home or self-care (01) ==
LOC: FER 11:51
PROVIDERS: Emergency Medicine
DX: D64.9 Anemia, unspecified (principal); K74.60 Unspecified cirrhosis of liver; F17.210 Nicotine dependence, cigarettes, uncomplicated
CPT/HCPCS: 36415; 36430; 80053; 85014; 85018; 85610; 85730; 86850; 86900; 86901; 86922; P9016

== ENCOUNTER 2021-04-17 10:07 | Emergency (ER) | payer OTHER ==
[2021-04-17 10:35] LABS: BASOPHIL 1.1 % (0-2); EOSINOPHIL 6.1 % (0-5); HCT 28.4 % (42.0-52.0); HGB 9.3 g/dl (13.2-18.0); LYMPHOCYTE 6.3 % (15-48); MCH 33.1 pg (25.0-31.0); MCHC 32.7 g/dL (32.0-36.0); MCV 101.1 fL (78.0-100.0); MONOCYTE 9.9 % (0-12); MPV 11.4 fL (6.0-9.5); NEUTROPHIL 76.2 % (41-80); NRBC 0; RBC 2.81 M/uL (4.70-6.00); RDW 17.6 % (11.5-14.0); WBC 4.5 K/uL (4.0-10.5)
[2021-04-17 10:47] LABS: INR 1.68 (0.9-1.2)
[2021-04-17 10:52] LABS: PLT 55 K/uL (150-400)
[2021-04-17 10:54] LABS: LACTIC ACID 0.7 mmol/L (0.4-1.9)
[2021-04-17 11:01] LABS: ALBUMIN 2.3 g/dL (3.4-5.0); ALKALINE PHOSHATASE 218 U/L (46-116); ALT 40 U/L (16-63); AST 49 U/L (15-37); BILIRUBIN - TOTAL 1.7 mg/dL (0.2-1.0); BUN 18 mg/dL (7-18); BUN/CREAT RATIO (CALC) 14.3 RATIO; CHLORIDE 108 mmol/L (98-107); CO2 (BICARBONATE) 22 mmol/L (21-32); CREATININE 1.26 mg/dL (0.67-1.17); GLUCOSE 107 mg/dL (74-106); LIPASE 131 U/L (73-393); POTASSIUM 4.2 mmol/L (3.5-5.1); TOTAL PROTEIN 5.3 g/dL (6.4-8.2)
== END 2021-04-17 13:40 | disposition other institution (70) ==
LOC: FER 10:07
PROVIDERS: Emergency Medicine
DX: K72.90 Hepatic failure, unspecified without coma (principal); R93.0 Abnormal findings on diagnostic imaging of skull and head, not elsewhere classified; N18.9 Chronic kidney disease, unspecified
CPT/HCPCS: 36415; 70450; 71045; 80053; 82140; 83605; 83690; 85025; 85610; G0480

== ENCOUNTER 2021-05-07 20:35 | Emergency (ER) | payer OTHER | END 2021-05-09 05:54 | disposition other institution (70) | LOC: FER 20:35 | DX: K92.0 Hematemesis (principal); K70.31 Alcoholic cirrhosis of liver with ascites; K72.90 Hepatic failure, unspecified without coma; N18.9 Chronic kidney disease, unspecified; F17.210 Nicotine dependence, cigarettes, uncomplicated; Z20.822 Contact with and (suspected) exposure to COVID-19 ==

== ENCOUNTER 2021-06-17 18:33 | Inpatient (IN) | payer OTHER ==
[~2021-06-17] VITALS: Ht 178 cm; Wt 77.0 kg
[2021-06-17 19:09] LABS: BUN/CREAT RATIO (CALC) 15.1 RATIO; CREATININE 1.06 mg/dL (0.67-1.17); GLOBULIN (CALCULATION) 1.9 g/dL; POTASSIUM 4.2 mmol/L (3.5-5.1); TOTAL PROTEIN 4.9 g/dL (6.4-8.2)
[2021-06-17 19:33] LABS: BASOPHIL 1.2 % (0-2); EOSINOPHIL 2.5 % (0-5); HCT 29.1 % (42.0-52.0); HGB 9.3 g/dl (13.2-18.0); LYMPHOCYTE 6.1 % (15-48); MCH 30.9 pg (25.0-31.0); MCV 96.7 fL (78.0-100.0); MONOCYTE 8.8 % (0-12); NRBC 0; PLT 71 K/uL (150-400); RBC 3.01 M/uL (4.70-6.00); RDW 18.8 % (11.5-14.0); WBC 5.1 K/uL (4.0-10.5)
[2021-06-17 21:39] LABS: CORONAVIRUS 2019 SARS-COV-2 NEGATIVE (NEGATIVE); INFLUENZA A NAA NEGATIVE (NEGATIVE)
[2021-06-17 22:02] LABS: BILIRUBIN NEGATIVE (NEGATIVE); BLOOD NEGATIVE Ery/uL (NEGATIVE); CLARITY CLEAR (CLEAR); COLOR YELLOW (YELLOW); GLUCOSE (U) NORMAL (NORMAL); LEUKOCYTES NEGATIVE Leu/uL (NEGATIVE); NITRITE NEGATIVE (NEGATIVE); PROTEIN NEGATIVE (NEGATIVE); UROBILINOGEN 0.2 mg/dL (0.2-1.0)
[2021-06-17 22:07] LABS: ECSTASY (MDMA) NEGATIVE (NEGATIVE); MARIJUANA (THC) NEGATIVE (NEGATIVE); METHADONE NEGATIVE (NEGATIVE); OPIATES NEGATIVE (NEGATIVE)
[2021-06-17 22:08] LABS: AMPHETAMINES NEGATIVE (NEGATIVE); BARBITURATES NEGATIVE (NEGATIVE); OXYCODONE NEGATIVE (NEGATIVE)
[2021-06-18 00:32] LABS: BILIRUBIN - DIRECT 0.8 mg/dL (0.00-0.20); BILIRUBIN - TOTAL 3.8 mg/dL (0.2-1.0); GLOBULIN (CALCULATION) 2.2 g/dL; TOTAL PROTEIN 5.2 g/dL (6.4-8.2)
[2021-06-18] MEDS ORDERED: ROCALTROL 0.0.25 MCG PO (03:22)
[2021-06-18] MEDS ORDERED: LASIX40 MG PO (03:23)
[2021-06-18] MEDS ORDERED: ALDACTONE25 MG PO (03:24)
[2021-06-18] MEDS ORDERED: PROTONIX 40MG T40 MG PO (03:24)
[2021-06-18] MEDS ORDERED: SODIUM BICARBO650 M1 PO ×2 (03:24→03:25)
[2021-06-18 05:33] LABS: EOSINOPHIL 4.1 % (0-5); HCT 27.7 % (42.0-52.0); LYMPHOCYTE 5.8 % (15-48); MCH 31.4 pg (25.0-31.0); MCHC 32.5 g/dL (32.0-36.0); MCV 96.5 fL (78.0-100.0); MONOCYTE 9.9 % (0-12); MPV 10.8 fL (6.0-9.5); NRBC 0; RBC 2.87 M/uL (4.70-6.00); RDW 18.7 % (11.5-14.0); WBC 5.1 K/uL (4.0-10.5)
[2021-06-18 05:51] LABS: CREATININE 1.2 mg/dL (0.67-1.17); POTASSIUM 3.8 mmol/L (3.5-5.1)
[2021-06-18 05:52] LABS: INR 1.86 (0.9-1.2); PROTHROMBIN TIME 20.6 SECONDS (11.8-13.4)
[2021-06-18 06:01] LABS: PLT 69 K/uL (150-400)
--- NOTE | 2021-06-18 15:39 | NUR ---
PARACENTENSIS DONE AT BEDSIDE IN ICU [address]AN. FLUID TOTAL 7L. PATIENT TOLERATED PROCEDURE WELL. ALBUMIN GIVEN POST PARACENTESIS ORDERED.
[2021-06-19 06:00] LABS: BASOPHIL 1.2 % (0-2); EOSINOPHIL 3.7 % (0-5); HCT 24.7 % (42.0-52.0); HGB 8.1 g/dl (13.2-18.0); LYMPHOCYTE 4.8 % (15-48); MCH 31.2 pg (25.0-31.0); MCHC 32.8 g/dL (32.0-36.0); MONOCYTE 9.9 % (0-12); MPV 11.5 fL (6.0-9.5); NEUTROPHIL 79.7 % (41-80); NRBC 0; RDW 18.4 % (11.5-14.0); WBC 4.3 K/uL (4.0-10.5)
[2021-06-19 06:25] LABS: ALBUMIN 2.9 g/dL (3.4-5.0); BILIRUBIN - TOTAL 2.1 mg/dL (0.2-1.0); BUN/CREAT RATIO (CALC) 16.7 RATIO; CREATININE 1.08 mg/dL (0.67-1.17); TOTAL PROTEIN 4.9 g/dL (6.4-8.2)
[2021-06-19 06:30] LABS: PLT 51 K/uL (150-400)
--- NOTE | 2021-06-19 15:27 | NUR ---
PT DISCHARGED VIA WHEELCHAIR WITH MOTHER. BACK PACK, CLOTHING GIVEN TO PT. ROOM CHECKED BEFORE PT LEFT FOR BELONGINGS.
== END 2021-06-19 13:59 | disposition home or self-care (01) | DRG 433 ==
LOC: FER 18:33 → FTCU 21:52 → FICU 21:52 → FER 22:50 → FICU 06-18 10:35 → FTCU 06-18 18:11
PROVIDERS: Allergy & Immunology Allergy; Emergency Medicine; Internal Medicine; Nurse Practitioner; ADMIT Internal Medicine
PROC: 0W9G3ZZ Drainage of Peritoneal Cavity, Percutaneous Approach (ICD-10-PCS; principal; 2021-06-18)
DX: K70.40 Alcoholic hepatic failure without coma (principal); E87.1 Hypo-osmolality and hyponatremia; K70.31 Alcoholic cirrhosis of liver with ascites; I95.89 Other hypotension; F41.1 Generalized anxiety disorder; M10.9 Gout, unspecified; M19.90 Unspecified osteoarthritis, unspecified site; D64.9 Anemia, unspecified; D69.6 Thrombocytopenia, unspecified; F17.200 Nicotine dependence, unspecified, uncomplicated; Z79.899 Other long term (current) drug therapy; Z91.038 Other insect allergy status; Z98.52 Vasectomy status
CPT/HCPCS: 36415; 36600; 70450; 71045; 80048; 80053; 80076; 80305; 81003; 82140; 82803; 84145; 85025; 85610; 96374; 97162; 97166; 97530-GP; 97535; J0692; J0696; J7030; P9046; P9047; U0002

== ENCOUNTER 2021-07-18 15:46 | Inpatient (IN) | payer OTHER ==
[~2021-07-18] VITALS: Ht 172.7 cm; Wt 73.7 kg
[~2021-07-18 15:46] MED LIST changes: +ALDACTONE25 MG PO; +PROTONIX 40MG T40 MG PO; +ROCALTROL 0.0.25 MCG PO; +SODIUM BICARBO650 M1 PO
[2021-07-18 16:22] LABS: BASOPHIL 1.1 % (0-2); EOSINOPHIL 2.5 % (0-5); HCT 26.1 % (42.0-52.0); HGB 8.7 g/dl (13.2-18.0); MCH 32.2 pg (25.0-31.0); MCHC 33.3 g/dL (32.0-36.0); MCV 96.7 fL (78.0-100.0); MONOCYTE 12.1 % (0-12); NRBC 0; RDW 18.2 % (11.5-14.0); WBC 3.6 K/uL (4.0-10.5)
[2021-07-18 16:23] LABS: PLT 63 K/uL (150-400)
[2021-07-18 16:32] LABS: ACETAMINOPHEN (TYLENOL) <2.0 ug/mL (10.0-30.0); ALBUMIN 2.9 g/dL (3.4-5.0); ALKALINE PHOSHATASE 293 U/L (46-116); ALT 30 U/L (16-63); AST 40 U/L (15-37); BUN 15 mg/dL (7-18); BUN/CREAT RATIO (CALC) 13.3 RATIO; CHLORIDE 111 mmol/L (98-107); CO2 (BICARBONATE) 17 mmol/L (21-32); CREATININE 1.13 mg/dL (0.67-1.17); GLOBULIN (CALCULATION) 2.7 g/dL; GLUCOSE 102 mg/dL (74-106); POTASSIUM 3.6 mmol/L (3.5-5.1); TOTAL PROTEIN 5.6 g/dL (6.4-8.2)
[2021-07-18 16:53] LABS: BILIRUBIN NEGATIVE (NEGATIVE); BLOOD NEGATIVE Ery/uL (NEGATIVE); CLARITY CLEAR (CLEAR); COLOR YELLOW (YELLOW); GLUCOSE (U) NORMAL (NORMAL); LEUKOCYTES NEGATIVE Leu/uL (NEGATIVE); NITRITE NEGATIVE (NEGATIVE); PROTEIN NEGATIVE (NEGATIVE); SPECIFIC GRAVITY 1.015 (1.001-1.030); UROBILINOGEN 0.2 mg/dL (0.2-1.0)
[2021-07-18 16:54] LABS: ECSTASY (MDMA) NEGATIVE (NEGATIVE); MARIJUANA (THC) NEGATIVE (NEGATIVE); METHADONE NEGATIVE (NEGATIVE); OPIATES NEGATIVE (NEGATIVE)
[2021-07-18 16:55] LABS: AMPHETAMINES NEGATIVE (NEGATIVE); BARBITURATES NEGATIVE (NEGATIVE); OXYCODONE NEGATIVE (NEGATIVE)
[2021-07-18 16:55] LABS: INFLUENZA A NAA NEGATIVE (NEGATIVE)
[2021-07-18 16:56] LABS: CORONAVIRUS 2019 SARS-COV-2 POSITIVE (NEGATIVE)
[2021-07-19 06:48] LABS: BASOPHIL 1.2 % (0-2); EOSINOPHIL 4.7 % (0-5); HCT 23.9 % (42.0-52.0); HGB 7.9 g/dl (13.2-18.0); LYMPHOCYTE 7.6 % (15-48); MCH 31.5 pg (25.0-31.0); MCHC 33.1 g/dL (32.0-36.0); MCV 95.2 fL (78.0-100.0); MPV 9.8 fL (6.0-9.5); NEUTROPHIL 72.2 % (41-80); NRBC 0; RBC 2.51 M/uL (4.70-6.00); WBC 3.4 K/uL (4.0-10.5)
[2021-07-19 06:49] LABS: PLT 50 K/uL (150-400)
[2021-07-19 06:58] LABS: INR 1.71 (0.9-1.2); PROTHROMBIN TIME 19.3 SECONDS (11.8-13.4)
[2021-07-19 07:11] LABS: ALBUMIN 2.8 g/dL (3.4-5.0); BILIRUBIN - TOTAL 2.3 mg/dL (0.2-1.0); BUN/CREAT RATIO (CALC) 15.3 RATIO; CREATININE 1.11 mg/dL (0.67-1.17); POTASSIUM 3.4 mmol/L (3.5-5.1); TOTAL PROTEIN 4.8 g/dL (6.4-8.2)
[2021-07-20 14:03] LABS: BASOPHIL 1.2 % (0-2); EOSINOPHIL 4.5 % (0-5); HCT 23.2 % (42.0-52.0); HGB 7.5 g/dl (13.2-18.0); LYMPHOCYTE 5.4 % (15-48); MCHC 32.3 g/dL (32.0-36.0); MCV 95.9 fL (78.0-100.0); MONOCYTE 12.7 % (0-12); MPV 10.5 fL (6.0-9.5); NEUTROPHIL 75.7 % (41-80); NRBC 0; RBC 2.42 M/uL (4.70-6.00); RDW 18.1 % (11.5-14.0); WBC 4.2 K/uL (4.0-10.5)
[2021-07-20 14:18] LABS: ALBUMIN 2.4 g/dL (3.4-5.0); BILIRUBIN - TOTAL 1.7 mg/dL (0.2-1.0); BUN/CREAT RATIO (CALC) 15.4 RATIO; CREATININE 1.17 mg/dL (0.67-1.17); POTASSIUM 3.8 mmol/L (3.5-5.1); TOTAL PROTEIN 4.4 g/dL (6.4-8.2)
[2021-07-20 14:22] LABS: PLT 66 K/uL (150-400)
== END 2021-07-21 15:57 | disposition home health service (06) | DRG 432 ==
LOC: FER 15:46 → FMS 16:49
PROVIDERS: Internal Medicine; Nurse Practitioner; ADMIT Allergy & Immunology Allergy
PROC: 8E0ZXY6 Isolation (ICD-10-PCS; principal; 2021-07-18)
PROC: 0T9B70Z Drainage of Bladder with Drainage Device, Via Natural or Artificial Opening (ICD-10-PCS; 2021-07-18)
DX: K70.31 Alcoholic cirrhosis of liver with ascites (principal); U07.1 COVID-19; J12.82 Pneumonia due to coronavirus disease 2019; K72.00 Acute and subacute hepatic failure without coma; K76.6 Portal hypertension; D61.818 Other pancytopenia; F10.10 Alcohol abuse, uncomplicated; I50.9 Heart failure, unspecified; F41.1 Generalized anxiety disorder; M10.9 Gout, unspecified; K80.20 Calculus of gallbladder without cholecystitis without obstruction; I48.91 Unspecified atrial fibrillation; M19.90 Unspecified osteoarthritis, unspecified site; Z91.14 Patient's other noncompliance with medication regimen; Z91.030 Bee allergy status; Z79.899 Other long term (current) drug therapy
CPT/HCPCS: 36415; 70450; 71250; 80053; 80305; 81003; 82140; 84145; 84484; 85025; 85610; 93005; 97110; 97162; 97166; 97530-GP; 97535; G0480; U0002

== ENCOUNTER 2021-07-22 10:27 | Inpatient (IN) | payer OTHER ==
[~2021-07-22] VITALS: Ht 175.3 cm; Wt 77.6 kg
[2021-07-22 11:43] LABS: BASOPHIL 0.7 % (0-2); EOSINOPHIL 2.9 % (0-5); HGB 9.3 g/dl (13.2-18.0); LYMPHOCYTE 6.9 % (15-48); MCHC 33.2 g/dL (32.0-36.0); MCV 96.2 fL (78.0-100.0); MONOCYTE 10.9 % (0-12); MPV 11.7 fL (6.0-9.5); NEUTROPHIL 78.1 % (41-80); NRBC 0; RBC 2.91 M/uL (4.70-6.00); RDW 18.3 % (11.5-14.0); WBC 4.2 K/uL (4.0-10.5)
[2021-07-22 12:10] LABS: ALBUMIN 2.9 g/dL (3.4-5.0); ALKALINE PHOSHATASE 291 U/L (46-116); ALT 37 U/L (16-63); AST 44 U/L (15-37); BILIRUBIN - TOTAL 1.7 mg/dL (0.2-1.0); BUN 18 mg/dL (7-18); BUN/CREAT RATIO (CALC) 15.5 RATIO; CHLORIDE 108 mmol/L (98-107); CO2 (BICARBONATE) 19 mmol/L (21-32); CREATININE 1.16 mg/dL (0.67-1.17); GLOBULIN (CALCULATION) 2.2 g/dL; GLUCOSE 103 mg/dL (74-106); POTASSIUM 4.2 mmol/L (3.5-5.1); TOTAL PROTEIN 5.1 g/dL (6.4-8.2)
[2021-07-22 12:30] LABS: CORONAVIRUS 2019 SARS-COV-2 NEGATIVE (NEGATIVE); INFLUENZA A NAA NEGATIVE (NEGATIVE)
[2021-07-22 12:47] LABS: INR 1.67 (0.9-1.2); PROTHROMBIN TIME 18.9 SECONDS (11.8-13.4); PTT 40.6 SECONDS (24.4-34.7)
[2021-07-22 14:50] LABS: PLT 60 K/uL (150-400)
[2021-07-22 14:56] LABS: BILIRUBIN NEGATIVE (NEGATIVE); BLOOD 1+ Ery/uL (NEGATIVE); CLARITY CLEAR (CLEAR); COLOR YELLOW (YELLOW); GLUCOSE (U) NORMAL (NORMAL); LEUKOCYTES NEGATIVE Leu/uL (NEGATIVE); NITRITE NEGATIVE (NEGATIVE); PROTEIN NEGATIVE (NEGATIVE); UROBILINOGEN 0.2 mg/dL (0.2-1.0)
[2021-07-22 14:59] LABS: AMPHETAMINES NEGATIVE (NEGATIVE); BARBITURATES NEGATIVE (NEGATIVE); ECSTASY (MDMA) NEGATIVE (NEGATIVE); MARIJUANA (THC) NEGATIVE (NEGATIVE); METHADONE NEGATIVE (NEGATIVE); OPIATES NEGATIVE (NEGATIVE); OXYCODONE NEGATIVE (NEGATIVE)
[2021-07-22 15:17] LABS: URINARY WBC RARE
[2021-07-23 05:18] LABS: BASOPHIL 1.2 % (0-2); EOSINOPHIL 4.6 % (0-5); LYMPHOCYTE 8.6 % (15-48); MCH 31.4 pg (25.0-31.0); MONOCYTE 14.2 % (0-12); MPV 11.7 fL (6.0-9.5); NEUTROPHIL 71.1 % (41-80); NRBC 0; RBC 2.55 M/uL (4.70-6.00); RDW 18.8 % (11.5-14.0); WBC 3.2 K/uL (4.0-10.5)
[2021-07-23 05:19] LABS: PLT 56 K/uL (150-400)
[2021-07-23 05:33] LABS: BUN/CREAT RATIO (CALC) 14.1 RATIO; CREATININE 0.92 mg/dL (0.67-1.17); MAGNESIUM 1.3 mg/dL (1.8-2.4); POTASSIUM 4.4 mmol/L (3.5-5.1)
--- NOTE | 2021-07-23 14:54 | NUR ---
07/23 Mr. Mcqueen lives at home with his mother. He has a 3in1 and rw. [facility] is current and have been notified of admission via [facility]. Please notify [facility] at [phone] if patient discharges over the weekend.
[2021-07-24 06:19] LABS: BASOPHIL 0.9 % (0-2); HCT 22.9 % (42.0-52.0); HGB 7.4 g/dl (13.2-18.0); LYMPHOCYTE 7.7 % (15-48); MCH 31.6 pg (25.0-31.0); MCHC 32.3 g/dL (32.0-36.0); MCV 97.9 fL (78.0-100.0); MONOCYTE 16.7 % (0-12); MPV 11.5 fL (6.0-9.5); NEUTROPHIL 70.1 % (41-80); NRBC 0; RBC 2.34 M/uL (4.70-6.00); RDW 18.6 % (11.5-14.0); WBC 3.2 K/uL (4.0-10.5)
[2021-07-24 06:36] LABS: BUN/CREAT RATIO (CALC) 12.9 RATIO; CREATININE 0.93 mg/dL (0.67-1.17); MAGNESIUM 1.4 mg/dL (1.8-2.4); POTASSIUM 3.7 mmol/L (3.5-5.1)
[2021-07-24 06:39] LABS: PLT 58 K/uL (150-400)
== END 2021-07-25 11:50 | disposition home health service (06) | DRG 434 ==
LOC: FER 10:27 → FOFB 14:37 → FMS 14:37
PROVIDERS: Emergency Medicine; ADMIT Internal Medicine
PROC: 0DH673Z Insertion of Infusion Device into Stomach, Via Natural or Artificial Opening (ICD-10-PCS; principal; 2021-07-22)
DX: K70.40 Alcoholic hepatic failure without coma (principal); K70.31 Alcoholic cirrhosis of liver with ascites; Z20.822 Contact with and (suspected) exposure to COVID-19; I10 Essential (primary) hypertension; F41.1 Generalized anxiety disorder; M10.9 Gout, unspecified; D64.9 Anemia, unspecified; M19.90 Unspecified osteoarthritis, unspecified site; Z91.030 Bee allergy status
CPT/HCPCS: 36415; 36600; 70450; 71045; 74018; 80048; 80053; 80305; 81001; 82140; 82803; 83735; 84145; 85025; 85610; 85730; 87040; 93005; C9113; G0480; J3475; U0002

== ENCOUNTER 2021-09-21 11:13 | Emergency (ER) | payer OTHER ==
[2021-09-21 15:44] LABS: BASOPHIL 1.5 % (0-2); EOSINOPHIL 2.9 % (0-5); HCT 24.1 % (42.0-52.0); HGB 7.6 g/dl (13.2-18.0); LYMPHOCYTE 8.5 % (15-48); MCH 32.3 pg (25.0-31.0); MCHC 31.5 g/dL (32.0-36.0); MCV 102.6 fL (78.0-100.0); MPV 10.4 fL (6.0-9.5); NEUTROPHIL 66.1 % (41-80); NRBC 0; PLT 65 K/uL (150-400); RBC 2.35 M/uL (4.70-6.00); RDW 19.6 % (11.5-14.0); WBC 2.7 K/uL (4.0-10.5)
[2021-09-21 15:46] LABS: MONOCYTE 20.6 % (0-12)
== END 2021-09-21 16:03 | disposition home or self-care (01) ==
LOC: FER 11:13
PROVIDERS: Physician Assistant Medical
DX: D64.9 Anemia, unspecified (principal); F17.210 Nicotine dependence, cigarettes, uncomplicated
CPT/HCPCS: 36415; 85025; 99284

== ENCOUNTER 2021-09-27 20:03 | Emergency (ER) | payer OTHER ==
[2021-09-27 20:23] LABS: BASOPHIL 0 % (0-2); HCT 18.4 % (42.0-52.0); LYMPHOCYTE 3.2 % (15-48); MCH 32.4 pg (25.0-31.0); MCV 104.5 fL (78.0-100.0); MONOCYTE 4.9 % (0-12); MPV 11.3 fL (6.0-9.5); NRBC 0; RBC 1.76 M/uL (4.70-6.00); RDW 20.5 % (11.5-14.0); WBC 2.5 K/uL (4.0-10.5)
[2021-09-27 20:26] LABS: HGB 5.7 g/dl (13.2-18.0)
[2021-09-27 20:27] LABS: NEUTROPHIL 89.5 % (41-80); PLT 44 K/uL (150-400)
[2021-09-27 20:43] LABS: ALBUMIN 3.5 g/dL (3.4-5.0); BILIRUBIN - TOTAL 2.3 mg/dL (0.2-1.0); BUN/CREAT RATIO (CALC) 14.8 RATIO; CREATININE 1.62 mg/dL (0.67-1.17); GLOBULIN (CALCULATION) 1.7 g/dL; POTASSIUM 3.5 mmol/L (3.5-5.1); TOTAL PROTEIN 5.2 g/dL (6.4-8.2)
[2021-09-28 02:16] LABS: HCT 20.4 % (42.0-52.0); HGB 6.7 g/dL (13.2-18.0)
[2021-09-28 02:39] LABS: HCT 21.3 % (42.0-52.0)
== END 2021-09-28 03:30 | disposition left against medical advice (07) ==
LOC: FER 20:03
PROVIDERS: Emergency Medicine
DX: D64.9 Anemia, unspecified (principal); I11.0 Hypertensive heart disease with heart failure; I50.9 Heart failure, unspecified; F17.200 Nicotine dependence, unspecified, uncomplicated; Z53.29 Procedure and treatment not carried out because of patient's decision for other reasons
CPT/HCPCS: 36415; 36430; 80053; 82140; 84145; 85014; 85018; 85025; 86850; 86900; 86901; 86922; P9016

== ENCOUNTER 2021-10-09 16:50 | Inpatient (IN) | payer MEDICARE, OTHER ==
[~2021-10-09] VITALS: Ht 180.3 cm; Wt 83.5 kg
[2021-10-09 17:30] LABS: BASOPHIL 0.9 % (0-2); EOSINOPHIL 2.2 % (0-5); HCT 24.1 % (42.0-52.0); HGB 7.8 g/dl (13.2-18.0); LYMPHOCYTE 6.9 % (15-48); MCH 31.5 pg (25.0-31.0); MCHC 32.4 g/dL (32.0-36.0); MCV 97.2 fL (78.0-100.0); MONOCYTE 11.9 % (0-12); MPV 9.7 fL (6.0-9.5); NRBC 0; RBC 2.48 M/uL (4.70-6.00); WBC 3.2 K/uL (4.0-10.5)
[2021-10-09 17:32] LABS: NEUTROPHIL 77.2 % (41-80)
[2021-10-09 17:33] LABS: PLT 67 K/uL (150-400)
[2021-10-09 17:42] LABS: INR 1.55 (0.9-1.2); PROTHROMBIN TIME 17.8 SECONDS (11.8-13.4); PTT 44.7 SECONDS (24.4-34.7)
[2021-10-09 17:55] LABS: ALBUMIN 2.9 g/dL (3.4-5.0); ALKALINE PHOSHATASE 231 U/L (46-116); ALT 16 U/L (16-63); AST 20 U/L (15-37); BILIRUBIN - TOTAL 2.2 mg/dL (0.2-1.0); BUN 22 mg/dL (7-18); BUN/CREAT RATIO (CALC) 17.2 RATIO; CHLORIDE 105 mmol/L (98-107); CO2 (BICARBONATE) 17 mmol/L (21-32); CREATININE 1.28 mg/dL (0.67-1.17); GLOBULIN (CALCULATION) 2.3 g/dL; GLUCOSE 111 mg/dL (74-106); POTASSIUM 3.5 mmol/L (3.5-5.1); TOTAL PROTEIN 5.2 g/dL (6.4-8.2)
[2021-10-09 17:56] LABS: LACTIC ACID 1.7 mmol/L (0.4-1.9)
[2021-10-09 19:36] LABS: CORONAVIRUS 2019 SARS-COV-2 NEGATIVE (NEGATIVE); INFLUENZA A NAA NEGATIVE (NEGATIVE)
[2021-10-09 20:46] LABS: ECSTASY (MDMA) NEGATIVE (NEGATIVE); MARIJUANA (THC) NEGATIVE (NEGATIVE)
[2021-10-09 20:47] LABS: AMPHETAMINES NEGATIVE (NEGATIVE); BARBITURATES NEGATIVE (NEGATIVE); METHADONE NEGATIVE (NEGATIVE); OPIATES POSITIVE (NEGATIVE); OXYCODONE NEGATIVE (NEGATIVE)
[2021-10-09 20:51] LABS: BILIRUBIN NEGATIVE (NEGATIVE); BLOOD NEGATIVE Ery/uL (NEGATIVE); CLARITY CLEAR (CLEAR); COLOR YELLOW (YELLOW); GLUCOSE (U) NORMAL (NORMAL); LEUKOCYTES TRACE Leu/uL (NEGATIVE); NITRITE NEGATIVE (NEGATIVE); PROTEIN NEGATIVE (NEGATIVE); SPECIFIC GRAVITY <=1.005 (1.001-1.030); UROBILINOGEN 0.2 mg/dL (0.2-1.0)
[2021-10-09 20:52] LABS: BACTERIA 4+
[2021-10-09] MEDS ORDERED: XIFAXAN550 MG PO (21:47)
[2021-10-09] MEDS ORDERED: MAG-OXIDE 400M400 MG PO (21:48)
[2021-10-09] MEDS ORDERED: PROAMATINE5 MG PO (21:48)
[2021-10-09] MEDS ORDERED: LACTULOSE10 G/15 ML PO (21:49)
[2021-10-10 04:26] LABS: BASOPHIL 0.6 % (0-2); EOSINOPHIL 3.1 % (0-5); HCT 22.1 % (42.0-52.0); HGB 7.1 g/dl (13.2-18.0); MCH 31.7 pg (25.0-31.0); MCHC 32.1 g/dL (32.0-36.0); MCV 98.7 fL (78.0-100.0); MONOCYTE 16.9 % (0-12); MPV 9.9 fL (6.0-9.5); NRBC 0; RBC 2.24 M/uL (4.70-6.00); WBC 3.2 K/uL (4.0-10.5)
[2021-10-10 04:32] LABS: PLT 67 K/uL (150-400)
[2021-10-10 04:33] LABS: NEUTROPHIL 72.5 % (41-80)
[2021-10-10 04:43] LABS: ALBUMIN 2.5 g/dL (3.4-5.0); BILIRUBIN - TOTAL 1.8 mg/dL (0.2-1.0); BUN/CREAT RATIO (CALC) 17.5 RATIO; CREATININE 1.14 mg/dL (0.67-1.17); GLOBULIN (CALCULATION) 2.2 g/dL; POTASSIUM 3.3 mmol/L (3.5-5.1); TOTAL PROTEIN 4.7 g/dL (6.4-8.2)
[2021-10-11 06:10] LABS: BASOPHIL 0.9 % (0-2); EOSINOPHIL 3.2 % (0-5); HCT 23.2 % (42.0-52.0); HGB 7.4 g/dl (13.2-18.0); LYMPHOCYTE 5.2 % (15-48); MCH 31.8 pg (25.0-31.0); MCHC 31.9 g/dL (32.0-36.0); MCV 99.6 fL (78.0-100.0); MONOCYTE 14.4 % (0-12); MPV 10.1 fL (6.0-9.5); NEUTROPHIL 75.4 % (41-80); NRBC 0; RBC 2.33 M/uL (4.70-6.00); RDW 22.5 % (11.5-14.0); WBC 4.4 K/uL (4.0-10.5)
[2021-10-11 06:19] LABS: PLT 66 K/uL (150-400)
[2021-10-11] MEDS ORDERED: K-TAB ER20 MEQ PO (09:17)
[2021-10-11] MEDS ORDERED: LACTULOSE10 G/15 ML PO ×2 (09:17→09:31)
== END 2021-10-11 10:22 | disposition home or self-care (01) | DRG 442 ==
LOC: FER 16:50 → FTCU 19:51
PROVIDERS: Allergy & Immunology; Allergy & Immunology Allergy; Emergency Medicine; ADMIT Internal Medicine
DX: K72.90 Hepatic failure, unspecified without coma (principal); N17.9 Acute kidney failure, unspecified; D68.4 Acquired coagulation factor deficiency; Z20.822 Contact with and (suspected) exposure to COVID-19; K70.31 Alcoholic cirrhosis of liver with ascites; E83.42 Hypomagnesemia; E87.6 Hypokalemia; D69.6 Thrombocytopenia, unspecified; I95.9 Hypotension, unspecified; F41.1 Generalized anxiety disorder; D63.8 Anemia in other chronic diseases classified elsewhere; K21.9 Gastro-esophageal reflux disease without esophagitis; I10 Essential (primary) hypertension; Z96.642 Presence of left artificial hip joint; Z83.3 Family history of diabetes mellitus; Z98.890 Other specified postprocedural states; Z79.899 Other long term (current) drug therapy; Z91.14 Patient's other noncompliance with medication regimen
CPT/HCPCS: 36415; 36430; 70450; 71045; 73502; 73552; 80053; 80305; 81001; 82140; 83605; 83735; 84132; 85025; 85610; 85730; 86850; 86900; 86901; 86922; 93005; 94010; G0480; J3475; J3480; J7030; J7040; P9016; P9047; U0002

== ENCOUNTER 2021-10-18 12:46 | Emergency (ER) | payer OTHER ==
[~2021-10-18 12:46] MED LIST changes: +K-TAB ER20 MEQ PO
== END 2021-10-18 16:48 | disposition left against medical advice (07) ==
LOC: FER 12:46
DX: D64.9 Anemia, unspecified (principal); I10 Essential (primary) hypertension; F17.200 Nicotine dependence, unspecified, uncomplicated; Z91.038 Other insect allergy status; Z53.29 Procedure and treatment not carried out because of patient's decision for other reasons
CPT/HCPCS: 99283

== ENCOUNTER → 2022-01-28 | Day surgery (SDC) | payer OTHER ==
[~2022-01-28] VITALS: Ht 177.8 cm; Wt 68.5 kg
[~2022-01-28] MED LIST changes: +CEPHALEXIN500 MG PO
[2022-01-28 11:27] LABS: INR 1.75 (0.9-1.2); PROTHROMBIN TIME 19.8 SECONDS (11.9-13.9)
== END | disposition home or self-care (01) ==
LOC: FAS 10:14
PROVIDERS: Student in an Organized Health Care Education/Training Program
DX: Z45.2 Encounter for adjustment and management of vascular access device (principal); K74.60 Unspecified cirrhosis of liver; D69.6 Thrombocytopenia, unspecified; D68.9 Coagulation defect, unspecified; I10 Essential (primary) hypertension; F17.200 Nicotine dependence, unspecified, uncomplicated; Z79.899 Other long term (current) drug therapy; Z91.038 Other insect allergy status
CPT/HCPCS: 36415; 85610; 85730; 86850; 86900; 86901

== ENCOUNTER 2022-03-04 07:35 | Emergency (ER) | payer OTHER ==
[2022-03-04] MEDS ORDERED: NORCO 5-325 TA1 EACH PO (09:42)
== END 2022-03-04 10:15 | disposition home or self-care (01) ==
LOC: FER 07:35
DX: S22.41XA Multiple fractures of ribs, right side, initial encounter for closed fracture (principal); I10 Essential (primary) hypertension; J45.909 Unspecified asthma, uncomplicated; W01.0XXA Fall on same level from slipping, tripping and stumbling without subsequent striking against object, initial encounter; Y92.009 Unspecified place in unspecified non-institutional (private) residence as the place of occurrence of the external cause; Z28.311 Partially vaccinated for COVID-19
CPT/HCPCS: 70450; 71250; 94010